=== PATIENT | female | born 1970 | race Caucasian/White ===

== ENCOUNTER 2017-07-29 09:50 | Emergency (ER) | payer MEDICAID ==
--- NOTE | 2017-07-29 10:00 | Emergency Department Record ---
History of Present Illness - General Chief Complaint: Knee injury Stated Complaint: R KNEE SWOLLEN Time Seen by Provider: 07/29/17 09:55 Source: Patient Mode of Arrival: Ambulatory Limitations: No limitations - History of Present Illness Initial Comments: 47 yo presents with one week of knee pain. She started a new job. She walks more and climbs more stairs. She has noted some swelling. It is worse at the end of a day. No history of surgery, fever, trauma, warmth or redness. MD Complaint: Knee injury Injury: Knee: Right Type of Injury: Other Place: Home, Work Severity: Moderate Improves With: Rest Worsens With: Movement, Weight bearing Context: Walking Associated Symptoms: Swelling - Related Data Previous Rx's Medication Instructions Recorded Naproxen [Naprosyn] 500 mg PO Q12H #20 tab. 07/29/17 Allergies Allergy/AdvReac Type Severity Reaction Status Date / Time No Known Allergies Allergy no Verified 07/29/17 09:52 allergies Review of Systems Constitutional: Denies: Chills, Fever, Malaise, Weakness Eyes: Denies: Eye discharge ENT: Denies: Congestion, Throat pain Respiratory: Denies: Cough, Dyspnea, Hemoptysis, Wheezes Cardiovascular: Denies: Chest pain, Syncope Endocrine: Denies: Fatigue Gastrointestinal: Denies: Abdominal pain, Diarrhea, Nausea, Vomiting Genitourinary: Denies: Dysuria, Urgency Musculoskeletal: Reports: As per HPI, Arthralgia, Joint swelling, Myalgia. Denies: Back pain Skin: Denies: Bruising, Change in color, Rash Neurological: Denies: Headache, Weakness Psychiatric: Denies: Anxiety Hematological/Lymphatic: Denies: Blood Clots, Easy bleeding, Easy bruising, Swollen glands Physical Exam - General General Appearance: Alert, Oriented x3, Cooperative, No acute distress - Head Head exam: Atraumatic, Normocephalic, Normal inspection - Eye Eye exam: Normal appearance - ENT ENT exam: Normal exam Ear exam: Normal external inspection Nasal Exam: Normal inspection Mouth exam: Normal external inspection - Neck Neck exam: Normal inspection - Respiratory Respiratory exam: Normal lung sounds bilaterally. negative: Respiratory distress - Cardiovascular Cardiovascular Exam: Regular rate, Normal rhythm, Normal heart sounds - Rectal Rectal exam: Deferred - exam: Deferred - Extremities Extremities exam: Normal inspection, Full ROM, Normal capillary refill, Tenderness (medial joint line). negative: Joint swelling, Pedal edema Image of Full Body: 1 - mild tenderness medial joint line, no appretiable effusion, no warmth, no erythema, no limit on ROM - Back Back exam: Reports: Full ROM. Denies: Tenderness - Neurological Neurological exam: Alert, Normal gait, Oriented X3, Reflexes normal - Psychiatric Psychiatric exam: Normal affect, Normal mood - Skin Skin exam: Dry, Intact, Normal color, Warm. negative: Abrasion, Cyanosis, Diaphoretic, Erythema Course - Reevaluation(s) Reevaluation #1: 07/29/17 10:00 XR ordered No warmth, effusion or erythema 07/29/17 10:12 The XR was reviewed No fracture; effusion noted on the preliminary XR She will be treated with conservative care and recommended follow up with the PCP 07/29/17 10:20 Disposition Disposition: Discharge Clinical Impression: Knee sprain Qualifiers: Encounter type: initial encounter Involved ligament of knee: unspecified ligament Laterality: right Qualified Code(s): S83.91XA - Sprain of unspecified site of right knee, initial encounter Disposition: Home, Self-Care Condition: (1) Good Instructions: Knee Sprain (ED), Swollen Knee Joint (ED) Additional Instructions: Ice the knee every 4-6 hours to decrease pain and inflammation Use the crutches for support and now weight bearing until pain free Follow up with your doctor this week for a recheck Prescriptions: Naproxen [Naprosyn] 500 mg PO Q12H #20 tab.dr Forms: Patient Portal Access Time of Disposition: 10:15 Quality - Quality Measures Quality Measures: N/A - Blood Pressure Screening Does Patient Have Any of the Following: No Blood Pressure Classification: Pre-Hypertensive BP Reading Systolic Measurement: 131 Diastolic Measurement: 50 Screening for High Blood Pressure: < Pre-Hypertensive BP, F/U Documented > [ G8950] Pre-Hypertensive Follow-up Interventions: Referral to alternative/primary care provider.
--- NOTE | 2017-07-31 09:47 | RADIOLOGY REPORT ---
EXAM: RIGHT KNEE HISTORY: MEDIAL RIGHT KNEE PAIN AFTER CLIMBING STEPS. SWELLING FOR THE PAST WEEK. TECHNIQUE: Four views of the right knee were obtained. Comparison: None. FINDINGS: There is mild narrowing of the medial compartment joint space. The bones and joints are otherwise normal. There is no acute fracture or destructive process. A moderate sized joint effusion is present. IMPRESSION: 1. NO ACUTE OSSEOUS ABNORMALITY. 2. MODERATE JOINT EFFUSION. 3. MINOR ARTHRITIC CHANGES WITHIN THE MEDIAL COMPARTMENT. JOB NUMBER: [id number] [facility]
== END 2017-07-29 10:38 | disposition home or self-care (01) ==
LOC: ER 09:50
DX: S83.91XA Sprain of unspecified site of right knee, initial encounter (principal); X50.3XXA Overexertion from repetitive movements, initial encounter; Y93.01 Activity, walking, marching and hiking; Y92.009 Unspecified place in unspecified non-institutional (private) residence as the place of occurrence of the external cause
CPT/HCPCS: 99283

== ENCOUNTER 2019-11-21 16:18 | Emergency (ER) | payer MEDICAID ==
[2019-11-21 17:20] LABS: INFLUENZA A NEGATIVE (NEGATIVE); INFLUENZA B POSITIVE (NEGATIVE)
--- NOTE | 2019-11-21 17:47 | RADIOLOGY REPORT ---
EXAMINATION: Frontal and Lateral Chest EXAM DATE: 11/21/2019 5:13 PM INDICATION: cough PRODUCTIVE COUGH X 1 MONTH,OPEN HEART FOR A FIB 05/2019. FINDINGS: Frontal and lateral views show clear lungs, normal heart size, and normal hilar and mediast inal structures. Previous cardiac surgery. IMPRESSION: Normal chest. Dictated by: Deep Gonzalez MD on 11/21/2019 5:43 PM. .
--- NOTE | 2019-11-21 18:08 | Emergency Department Record ---
History of Present Illness - General Chief Complaint: Cough Stated Complaint: COUGH Time Seen by Provider: 11/21/19 17:19 Source: Patient Mode of Arrival: Ambulatory Limitations: No limitations - History of Present Illness Initial Comments: pt has had a green productive cough for a week. it feels like her previous bout of pneumonia MD Complaint: Cough Onset/Timin -: Week(s) Severity: Mild Consistency: Getting worse Improves With: Nothing Worsens With: Nothing Associated Symptoms: Cough, Hoarseness, Nasal congestion - Related Data Home Medications Medication Instructions Recorded Confirmed Last Taken Amiodarone HCl 400 mg PO DAILY 11/21/19 11/21/19 Unknown Atorvastatin Calcium 10 mg PO DAILY 11/21/19 11/21/19 Unknown Metoprolol Tartrate 25 mg PO DAILY 11/21/19 11/21/19 Unknown Rivaroxaban [Xarelto] 20 mg PO DAILY 11/21/19 11/21/19 Unknown Previous Rx's Medication Instructions Recorded Amoxicillin 500 mg PO Q8HR #21 capsule 11/21/19 Allergies Allergy/AdvReac Type Severity Reaction Status Date / Time No Known Allergies Allergy no Unverified 11/21/19 16:31 allergies Travel Screening - Travel/Exposure Within Last 30 Days Have you traveled within the last 30 days?: Yes Location Detail:: [place] - Travel/Exposure Within Last Year Have you traveled outside the [place] in the last year?: No - Additonal Travel Details Have you been exposed to anyone with a communicable illness?: No - Travel Symptoms Symptom Screening: None Review of Systems Reviewed: No additional complaints except as noted below Constitutional: Reports: As per HPI. Denies: Chills, Fever, Malaise, Night sweats, Weakness, Weight change Eyes: Reports: As per HPI. Denies: Eye discharge, Eye pain, Photophobia, Vision change ENT: Reports: As per HPI. Denies: Congestion, Dental pain, Ear pain, Epistaxis, Hearing loss, Throat pain Respiratory: Reports: As per HPI. Denies: Cough, Dyspnea, Hemoptysis, Stridor, Wheezes Cardiovascular: Reports: As per HPI. Denies: Arrhythmia, Chest pain, Dyspnea on exertion, Edema, Murmurs, Orthopnea, Palpitations, Paroxysmal nocturnal dyspnea, Rheumatic Fever, Syncope Endocrine: Reports: As per HPI. Denies: Fatigue, Heat or cold intolerance, Polydipsia, Polyuria Gastrointestinal: Reports: As per HPI. Denies: Abdominal pain, Constipation, Diarrhea, Hematemesis, Hematochezia, Melena, Nausea, Vomiting Genitourinary: Reports: As per HPI. Denies: Abnormal menses, Discharge, Dyspareunia, Dysuria, Frequency, Hematuria, Incontinence, Retention, Urgency Musculoskeletal: Reports: As per HPI. Denies: Arthralgia, Back pain, Gout, Joint swelling, Myalgia, Neck pain Skin: Reports: As per HPI. Denies: Bruising, Change in color, Change in hair/nails, Lesions, Pruritus, Rash Neurological: Reports: As per HPI. Denies: Abnormal gait, Confusion, Headache, Numbness, Paresthesias, Seizure, Tingling, Tremors, Vertigo, Weakness Psychiatric: Reports: As per HPI. Denies: Anxiety, Auditory hallucinations, Depression, Homicidal thoughts, Suicidal thoughts, Visual hallucinations Hematological/Lymphatic: Reports: As per HPI. Denies: Anemia, Blood Clots, Easy bleeding, Easy bruising, Swollen glands Past Medical History - SOCIAL HISTORY Smoking Status: Light tobacco smoker (<10/day) Alcohol Use: None Drug Use: Occasional Drug Use Detail:: Marijuana - RESPIRATORY Hx Respiratory Disorders: Yes Hx Asthma: Yes Hx COPD: Yes Hx Pneumonia: Yes Hx Sleep Apnea: Yes Hx of CPAP: Yes - CARDIOVASCULAR Hx Cardio Disorders: Yes Hx Hypertension: Yes Hx Irregular Heartbeat: Yes (afib) Comment:: high cholesterol - NEURO Hx Neuro Disorders: No - GI Hx GI Disorders: Yes Hx Reflux: Yes - Hx Genitourinary Disorders: No Hx Renal Disease: Yes (decreased kidney function) - ENDOCRINE Hx Endocrine Disorders: No Hx Thyroid Disease: (pt unsure) - MUSCULOSKELETAL Hx Musculoskeletal Disorders: Yes Hx Arthritis: Yes - PSYCH Hx Psych Problems: Yes Hx Anxiety: Yes Hx Depression: Yes - HEMATOLOGY/ONCOLOGY Hx Hematology/Oncology Disorders: No Family Medical History Any Significant Family History?: No Hx Cancer: Grandparents *Cancer Comment: uncles and aunts on father's side; pt's mother with lung/brain Hx Diabetes: Father, Mother, Brother/Sister Hx Heart Disease: Grandparents Physical Exam - General General Appearance: Alert, Oriented x3, Cooperative, Mild distress - Head Head exam: Normal inspection - Eye Eye exam: Normal appearance, PERRL, EOMI Pupils: Normal accommodation - ENT ENT exam: Normal exam, Mucous membranes moist, Normal external ear exam, Normal orophraynx Ear exam: Normal external inspection. negative: External canal tenderness Nasal Exam: Normal inspection. negative: Discharge, Sinus tenderness Mouth exam: Normal external inspection, Tongue normal Teeth exam: Normal inspection. negative: Dental caries Throat exam: Normal inspection. negative: Tonsillar erythema, Tonsillar exudate - Neck Neck exam: Normal inspection, Full ROM. negative: Tenderness - Respiratory Respiratory exam: Normal lung sounds bilaterally. negative: Respiratory distress - Cardiovascular Cardiovascular Exam: Regular rate, Normal rhythm, Normal heart sounds - GI/Abdominal GI/Abdominal exam: Soft, Normal bowel sounds. negative: Tenderness - Rectal Rectal exam: Deferred - exam: Deferred - Extremities Extremities exam: Normal inspection, Full ROM, Normal capillary refill. negative: Tenderness - Back Back exam: Reports: Normal inspection, Full ROM. Denies: Muscle spasm, Rash noted, Tenderness - Neurological Neurological exam: Alert, CN II-XII intact, Normal gait, Oriented X3 - Psychiatric Psychiatric exam: Normal affect, Normal mood - Skin Skin exam: Dry, Intact, Normal color, Warm Medical Decision Making - Lab Data Lab Results 11/21/19 Range/Units 16:55 Influenza Type A Ag Negative (NEGATIVE) Influenza Type B Ag Positive H (NEGATIVE) Disposition Disposition: Discharge Clinical Impression: Bronchitis Disposition: Home, Self-Care Condition: (1) Good Instructions: Acute Bronchitis (ED) Additional Instructions: follow up with family doctor. return sooner if worse. use dayquil and nyquil. Prescriptions: Amoxicillin 500 mg PO Q8HR #21 capsule Forms: Patient Portal Access Quality - Quality Measures Quality Measures: N/A - Blood Pressure Screening Does Patient Have Any of the Following: No Systolic Measurement: ~ Screening for High Blood Pressure: < Normal BP, F/U Not Required > [G8783]
== END 2019-11-21 18:42 | disposition home or self-care (01) ==
LOC: ER 16:18
DX: J10.1 Influenza due to other identified influenza virus with other respiratory manifestations (principal); J20.9 Acute bronchitis, unspecified; I10 Essential (primary) hypertension; J44.9 Chronic obstructive pulmonary disease, unspecified; F17.210 Nicotine dependence, cigarettes, uncomplicated
CPT/HCPCS: 71046; 87400; 99283

== ENCOUNTER 2019-12-19 16:37 | Emergency (ER) | payer SELFPAY ==
--- NOTE | 2019-12-19 17:18 | Emergency Department Record ---
History of Present Illness - General Chief Complaint: Cough Stated Complaint: COUGH AND SWELL IN LEGS Time Seen by Provider: 12/19/19 16:49 Source: Patient Mode of Arrival: Ambulatory Limitations: No limitations - History of Present Illness Initial Comments: The patient is here due to a cough and congestion and hoarse voice for 4 weeks. She has had mild SOB at times with it but no fever, CP, back pain or nausea. She does have a hx of cardiac issues and has been out of all of her medicines for 8 weeks. The patient is trying to see a PCP at the [facility] at this time due to not having a PCP. MD Complaint: Cough, Nasal congestion, Rhinorrhea Onset/Timin -: Week(s) Severity: Moderate Severity scale (1-10): 8 Consistency: Constant - Related Data Home Medications Medication Instructions Recorded Confirmed Last Taken Apixaban [Eliquis] 5 mg PO DAILY 12/19/19 12/19/19 Unknown Cholecalciferol (Vitamin D3) 50,000 unit PO WEEKLY 12/19/19 12/19/19 Unknown [Vitamin D3] Furosemide [Lasix] 20 mg PO DAILY 12/19/19 12/19/19 Unknown Lisinopril [Zestril] 5 mg PO DAILY 12/19/19 12/19/19 Unknown Montelukast Sodium 10 mg PO DAILY 12/19/19 12/19/19 Unknown Sucralfate 1 gm PO QAM 12/19/19 12/19/19 Unknown Previous Rx's Medication Instructions Recorded Doxycycline Monohydrate [Mondoxyne 100 mg PO BID 7 Days #14 capsule 12/19/19 Nl] Allergies Allergy/AdvReac Type Severity Reaction Status Date / Time No Known Allergies Allergy no Unverified 11/21/19 16:31 allergies Travel/Exposure Screening - Travel/Exposure Within Last 30 Days Have you traveled within the last 30 days?: No - Travel/Exposure Within Last Year Have you traveled outside the [place] in the last year?: No - Additonal Travel/Exposure Details Have you been exposed to anyone with a communicable illness?: No - Travel Symptoms Symptom Screening: Chills, Cough Review of Systems Constitutional: Reports: Malaise. Denies: Chills, Fever Eyes: Denies: Eye discharge ENT: Reports: Congestion Respiratory: Reports: Cough. Denies: Dyspnea Past Medical History - SOCIAL HISTORY Smoking Status: Light tobacco smoker (<10/day) Alcohol Use: Rare Drug Use: Heavy Drug Use Detail:: Marijuana - RESPIRATORY Hx Respiratory Disorders: Yes Hx Asthma: Yes Hx COPD: Yes Hx Pneumonia: Yes Hx Sleep Apnea: Yes Hx of CPAP: Yes Comment:: Does not currently use CPAP - CARDIOVASCULAR Hx Cardio Disorders: Yes Hx Hypertension: Yes Hx Irregular Heartbeat: Yes (afib) Comment:: high cholesterol - NEURO Hx Neuro Disorders: No - GI Hx GI Disorders: Yes Hx Reflux: Yes - Hx Genitourinary Disorders: No Hx Renal Disease: Yes (decreased kidney function) - ENDOCRINE Hx Endocrine Disorders: No Hx Thyroid Disease: (pt unsure) - MUSCULOSKELETAL Hx Musculoskeletal Disorders: Yes Hx Arthritis: Yes - PSYCH Hx Psych Problems: Yes Hx Anxiety: Yes Hx Depression: Yes - HEMATOLOGY/ONCOLOGY Hx Hematology/Oncology Disorders: No Family Medical History Any Significant Family History?: No Hx Cancer: Grandparents *Cancer Comment: uncles and aunts on father's side; pt's mother with lung/brain Hx Diabetes: Father, Mother, Brother/Sister Hx Heart Disease: Grandparents Physical Exam - General General Appearance: Alert, Oriented x3, Cooperative, No acute distress - Head Head exam: Atraumatic, Normocephalic, Normal inspection - Eye Eye exam: Normal appearance, PERRL - ENT Throat exam: Normal inspection. negative: Tonsillar erythema, Tonsillar exudate - Neck Neck exam: Normal inspection, Full ROM. negative: Tenderness - Respiratory Respiratory exam: Normal lung sounds bilaterally. negative: Respiratory distress - Cardiovascular Cardiovascular Exam: Regular rate, Normal rhythm, Normal heart sounds - GI/Abdominal GI/Abdominal exam: Soft, Normal bowel sounds. negative: Tenderness - Extremities Extremities exam: Normal inspection, Full ROM, Normal capillary refill. negative: Calf tenderness, Pedal edema, Tenderness - Neurological Neurological exam: Alert. negative: Motor sensory deficit Course Vital Signs 12/19/19 16:45 Temperature 98.6 F Pulse Rate [ 73 Left Radial] Respiratory 20 Rate Blood Pressure 127/68 [Left Arm] Pulse Ox 99 - Reevaluation(s) Reevaluation #1: The patient is doing very well at this time. She is resting comfortably in no distress with no SOB. I did discuss the lab results and the normal xray. We did discuss the need to see a PCP due to the anemia and mild renal dz. The patient understands and will F/U. We will place her on Doxycycline for the chronic cough and again stressed the need to F/U. 12/19/19 18:33 Medical Decision Making - Data Complexity MDM Data: Labs Ordered and/or Reviewed, X-Ray Ordered and/or Reviewed - Lab Data Result diagrams: 12/19/19 17:35 12/19/19 17:35 - Radiology Data Radiology results: Report reviewed (CXR; Neg.) Disposition Disposition: Discharge Clinical Impression: Bronchitis Disposition: Home, Self-Care Condition: (2) Stable Instructions: Cold Symptoms (ED) Additional Instructions: Please take the Doxycycline as directed and please see a family doctor next week for recheck and to have your medicines refilled. Return to the ER for any worsening issues. Prescriptions: Doxycycline Monohydrate [Mondoxyne Nl] 100 mg PO BID 7 Days #14 capsule Forms: Patient Portal Access Time of Disposition: 18:36 Quality - Quality Measures Quality Measures: N/A - Blood Pressure Screening View Details: Yes Does Patient Have Any of the Following: No Blood Pressure Classification: Pre-Hypertensive BP Reading Systolic Measurement: 127 Diastolic Measurement: 68 Screening for High Blood Pressure: < Pre-Hypertensive BP, F/U Documented > [G8950] Pre-Hypertensive Follow-up Interventions: Referral to alternative/primary care provider.
[2019-12-19 17:41] LABS: ABSOLUTE NEUTROPHIL COUNT 6.01; BASO % 0.3 % (0-6); EOS % 4.2 % (0-6); GRAN % 69.8 % (47-80); HEMATOCRIT 30.6 % (35.0-47.0); HEMOGLOBIN 9.4 gm/dl (11.6-16.0); LYMPH % 18.3 % (16-45); MEAN CELL VOLUME 96.2 fl (81-97); MEAN CORPUSCULAR HGB CONC 30.7 g/dl (32-36); MONO % 7.4 % (0-9); PLATELET COUNT 278 K/uL (130-400); RED BLOOD COUNT 3.18 M/uL (3.80-5.40); RED CELL DISTRIBUTION WIDTH 14.3 % (11.5-14.5); WHITE BLOOD COUNT W/O DIFF 8.6 K/uL (4.2-12.2)
[2019-12-19 17:43] LABS: MEAN CORPUSCULAR HEMOGLOBIN 29.5 pg (27-33)
[2019-12-19 17:51] LABS: BILIRUBIN,TOTAL 0.2 mg/dL (0.2-1.0); CREATININE 1.3 mg/dL (0.5-0.9)
[2019-12-19 17:52] LABS: TOTAL PROTEIN 6.4 g/dL (6.6-8.7)
[2019-12-19 17:57] LABS: ALB/GLOB RATIO 1.1 (1.1-1.8); ALBUMIN 3.4 g/dL (4.0-5.0)
[2019-12-19 18:18] LABS: URINE APPEARANCE CLEAR; URINE BILIRUBIN NEGATIVE (NEGATIVE); URINE BLOOD NEGATIVE (NEGATIVE); URINE COLOR YELLOW; URINE GLUCOSE (UA) NEGATIVE (NEGATIVE); URINE KETONE NEGATIVE (NEGATIVE); URINE LEUKOCYTE ESTERASE TRACE (NEGATIVE); URINE NITRITE NEGATIVE (NEGATIVE); URINE PROTEIN NEGATIVE (NEGATIVE); URINE UROBILINOGEN 0.2 E.U./dL (0.20 - 1.00)
--- NOTE | 2019-12-19 18:20 | RADIOLOGY REPORT ---
EXAMINATION: Two View Chest Radiographs EXAM DATE: 12/19/2019 6:03 PM TECHNIQUE: Frontal and lateral views INDICATION: cough COMPARISON: None ENCOUNTER: Not applicable FINDINGS: Sternal wires are present. Annuloplasty ring overlies the heart. Lungs are clear. Cardiac silhouette diaphragm and osseous structures are unremarkable. IMPRESSION: 1. No acute intrathoracic process with no interval change. Dictated by: Cristian Terrazas MD on 12/19/2019 6:17 PM. .
[2019-12-19 18:28] LABS: URINE BACTERIA FEW; URINE RBC NONE SEEN (NONE SEEN)
== END 2019-12-19 18:57 | disposition home or self-care (01) ==
LOC: ER 16:37
DX: J02.9 Acute pharyngitis, unspecified (principal); F17.210 Nicotine dependence, cigarettes, uncomplicated; J44.9 Chronic obstructive pulmonary disease, unspecified; I10 Essential (primary) hypertension
CPT/HCPCS: 71046; 80053; 81001; 85025; 99284